=== PATIENT | female | born 1990 | race Caucasian/White ===

== ENCOUNTER 2021-12-09 06:25 | Inpatient (IN) | payer BC ==
[2021-12-09] MEDS: ELECTROLYTE-148 SOLN 1,000 ML IV SCH ×4 (08:15→18:14)
[2021-12-09 09:17] VITALS: BMI 36.0
[2021-12-09] MEDS ORDERED: OXYTOCIN 30 UNITS in 0.9% NS 30 UNIT/500 ML INFUS.BAG IVPB ONE (09:59)
[2021-12-09] MEDS: OXYTOCIN 30 UNITS in 0.9% NS 30 UNIT/500 ML INFUS.BAG IVPB SCH (10:05)
[2021-12-09 10:17] LABS: INR 0.93 (0.83-1.09); PROTHROMBIN TIME (PATIENT) 10.7 SEC (9.7-13.0)
[2021-12-09 10:19] LABS: ACTIVATED PTT 28.2 SECONDS (25.2-36.5)
[2021-12-09 10:24] LABS: BASO % 0.2 % (0-2.0); EOS % 0.3 % (0-4.5); HEMATOCRIT 40.6 % (32.4-45.2); LYMPH % 10.6 % (8-40); MCH 27.8 pg (25.7-33.7); MCHC 32.1 g/dl (32.0-36.0); MEAN CELL VOLUME 86.7 fl (80-96); MEAN PLT VOLUME 8.5 fl (7.5-11.1); MONO % 5.4 % (3.8-10.2); NEUT % 83.5 % (42.8-82.8); PLATELET COUNT 246 10^3/uL (134-434); RBC 4.68 M/mm3 (3.60-5.2); RDW 13.7 % (11.6-15.6); WHITE BLOOD COUNT 12.3 K/mm3 (4.0-10.0)
[2021-12-09 11:07] LABS: BLOOD UREA NITROGEN 8.7 mg/dL (7-18)
[2021-12-09 11:10] LABS: CREATININE 0.4 mg/dL (0.55-1.3)
[2021-12-09 12:15] LABS: HIV INTERPRETATION NEGATIVE (NEGATIVE)
[2021-12-09] MEDS ORDERED: FENTANYL/BUPIVACAINE/NS/PF - PCEA - 50 ML DISP.SYRIN EP ONE ×3 (12:37→21:08)
[2021-12-09] MEDS ORDERED: BUPIVACAINE HCL/PF 0.25% (2.5MG/ML) 10 ML VIAL ONE ×2 (12:44→21:21)
[2021-12-09] MEDS ORDERED: NALOXONE HCL 0.4 MG/ML VIAL IVPUSH PRN (13:29)
[2021-12-09] MEDS ORDERED: FENTANYL/BUPIVACAINE/NS/PF - PCEA - 50 ML DISP.SYRIN EP SCH (13:30)
[2021-12-09] MEDS: FENTANYL/BUPIVACAINE/NS/PF - PCEA - 50 ML DISP.SYRIN EP SCH (17:33)
[2021-12-10] MEDS ORDERED: FENTANYL/BUPIVACAINE/NS/PF - PCEA - 50 ML DISP.SYRIN EP ONE ×3 (00:43→06:57)
[2021-12-10] MEDS: FENTANYL/BUPIVACAINE/NS/PF - PCEA - 50 ML DISP.SYRIN EP SCH ×3 (00:45→07:00)
[2021-12-10] MEDS ORDERED: OXYTOCIN 20 UNITS in 0.9% NS 20 UNIT/1,000 ML INFUS.BAG IV ONE (04:16)
[2021-12-10] MEDS ORDERED: AMPICILLIN - 2 GM in SODIUM CHLORIDE 100 ML IVPB ONE (06:00)
[2021-12-10] MEDS ORDERED: AMPICILLIN SODIUM 2 GM VIAL ONE (06:07)
[2021-12-10] MEDS ORDERED: oxyCODONE HCL 5 MG TABLET PO PRN (09:40)
[2021-12-10] MEDS ORDERED: WITCH HAZEL 50% (TUCKS) 40 PAD/JAR PAD TP PRN (09:40)
[2021-12-10] MEDS ORDERED: BISACODYL 10 MG SUPP.RECT RC PRN (09:40)
[2021-12-10] MEDS ORDERED: METHYLERGONOVINE MALEATE 0.2 MG/1 ML AMP IM PRN (09:40)
[2021-12-10] MEDS ORDERED: BENZOCAINE 28 GM HEMORRHOIDAL OINTMENT TP PRN (09:40)
[2021-12-10] MEDS ORDERED: ACETAMINOPHEN 325 MG TABLET (FP) PO PRN (09:40)
[2021-12-10] MEDS ORDERED: BENZOCAINE 20% 57 GM BOTTLE TP PRN (09:40)
[2021-12-10] MEDS ORDERED: OXYTOCIN 20 UNITS in 0.9% NS 20 UNIT/1,000 ML INFUS.BAG IV SCH (09:45)
[2021-12-10] MEDS: IBUPROFEN 600 MG TABLET (FP) PO PRN ×2 (10:19→17:34)
[2021-12-10] MEDS ORDERED: IBUPROFEN 600 MG TABLET (FP) PO ONE (10:20)
[2021-12-10] MEDS: AMPICILLIN - 1 GM in SODIUM CHLORIDE 100 ML IVPB SCH (17:31)
[2021-12-11] MEDS: FENTANYL/BUPIVACAINE/NS/PF - PCEA - 50 ML DISP.SYRIN EP SCH (02:06)
[2021-12-11] MEDS: AMPICILLIN - 1 GM in SODIUM CHLORIDE 100 ML IVPB SCH (02:07)
[2021-12-11 08:16] LABS: BASO % 0.2 % (0-2.0); EOS % 0.5 % (0-4.5); HEMATOCRIT 31.4 % (32.4-45.2); HEMOGLOBIN 10.2 GM/dL (10.7-15.3); LYMPH % 7.2 % (8-40); MCH 28.2 pg (25.7-33.7); MCHC 32.6 g/dl (32.0-36.0); MEAN CELL VOLUME 86.6 fl (80-96); NEUT % 86.1 % (42.8-82.8); PLATELET COUNT 198 10^3/uL (134-434); RBC 3.62 M/mm3 (3.60-5.2); RDW 14.1 % (11.6-15.6)
[2021-12-11] MEDS: IBUPROFEN 600 MG TABLET (FP) PO PRN ×2 (14:13→22:08)
[2021-12-11] MEDS: OXYTOCIN 30 UNITS in 0.9% NS 30 UNIT/500 ML INFUS.BAG IVPB SCH (20:25)
[2021-12-11] MEDS: ELECTROLYTE-148 SOLN 1,000 ML IV SCH (20:25)
[2021-12-11] MEDS ORDERED: SENNOSIDES/DOCUSATE COMBO (SENNA PLUS) TABLET (UD) PO PRN (22:00)
[2021-12-11] MEDS: PHENYLEPHRINE HCL/COCOA BUTTER SUPPOSITORY RC SCH (22:11)
[2021-12-12 08:50] LABS: BASO % 0.5 % (0-2.0); EOS % 1.7 % (0-4.5); HEMATOCRIT 30.7 % (32.4-45.2); HEMOGLOBIN 9.8 GM/dL (10.7-15.3); LYMPH % 11.7 % (8-40); MCH 28.2 pg (25.7-33.7); MCHC 31.9 g/dl (32.0-36.0); MEAN CELL VOLUME 88.3 fl (80-96); MEAN PLT VOLUME 8.5 fl (7.5-11.1); NEUT % 81.1 % (42.8-82.8); PLATELET COUNT 227 10^3/uL (134-434); RBC 3.48 M/mm3 (3.60-5.2); RDW 13.8 % (11.6-15.6); WHITE BLOOD COUNT 13.4 K/mm3 (4.0-10.0)
[2021-12-12] MEDS: PHENYLEPHRINE HCL/COCOA BUTTER SUPPOSITORY RC SCH (09:52)
[2021-12-12] MEDS: IBUPROFEN 600 MG TABLET (FP) PO PRN (09:52)
[2021-12-12 10:08] VITALS: BP 115/75; PULSE 89; TEMP 98
== END 2021-12-12 18:40 | disposition home or self-care (01) | DRG 807 ==
LOC: JLDR 06:25 → J3W 12-10 12:10
PROVIDERS: ADMIT Obstetrics & Gynecology; ATTEND Specialist
PROC: 10E0XZZ Delivery of Products of Conception, External Approach (ICD-10-PCS; principal; 2021-12-10)
PROC: 0W8NXZZ Division of Female Perineum, External Approach (ICD-10-PCS; 2021-12-10)
DX: O80 Encounter for full-term uncomplicated delivery (principal); Z37.0 Single live birth; Z3A.39 39 weeks gestation of pregnancy
CPT/HCPCS: 36415; 59409; 80048; 85025; 85610; 85730; 86780; 86850; 86900; 86901; 87389; 88307-TC; C9803; U0003; U0005

== ENCOUNTER 2023-11-04 05:15 | Inpatient (IN) | payer BC ==
[2023-11-04] MEDS ORDERED: TERBUTALINE SULFATE 1 MG/1 ML VIAL SQ ONE (05:54)
[2023-11-04] MEDS: ELECTROLYTE-148 SOLN 500 ML IV ONE (06:00)
[2023-11-04] MEDS ORDERED: ELECTROLYTE-148 SOLN 1,000 ML IV SCH (06:00)
[2023-11-04] MEDS ORDERED: OXYTOCIN 20 UNITS in 0.9% NS 20 UNIT/1,000 ML INFUS.BAG IV ONE (06:03)
[2023-11-04] MEDS ORDERED: LIDOCAINE HCL 1% PRESERVATIVE FREE - 30ML VIAL ONE (06:03)
[2023-11-04 06:25] VITALS: BMI 36.5
[2023-11-04 06:44] LABS: BASO % 0.3 % (0-2.0); EOS % 0.6 % (0-4.5); HEMATOCRIT 40.5 % (32.4-45.2); HEMOGLOBIN 13.4 GM/dL (10.7-15.3); LYMPH % 14.7 % (8-40); MCH 28.5 pg (25.7-33.7); MEAN CELL VOLUME 86.3 fl (80-96); MEAN PLT VOLUME 8.7 fl (7.5-11.1); MONO % 8.7 % (3.8-10.2); NEUT % 75.7 % (42.8-82.8); PLATELET COUNT 205 10^3/uL (134-434); RBC 4.69 M/mm3 (3.60-5.2); RDW 13.4 % (11.6-15.6)
[2023-11-04] MEDS ORDERED: FENTANYL/BUPIVACAINE/NS/PF - PCEA - 50 ML DISP.SYRIN EP ONE (06:54)
[2023-11-04 06:55] LABS: INR 0.97 (0.83-1.09); PROTHROMBIN TIME (PATIENT) 11.3 SEC (9.7-13.0)
[2023-11-04] MEDS: TERBUTALINE SULFATE 1 MG/1 ML VIAL SQ ONE (06:56)
[2023-11-04 06:58] LABS: ACTIVATED PTT 27.9 SECONDS (25.2-36.5)
[2023-11-04] MEDS ORDERED: ONDANSETRON 4 MG/2 ML VIAL ONE (06:58)
[2023-11-04] MEDS ORDERED: DEXAMETHASONE SOD PHOSPHATE 4 MG/1 ML VIAL ONE (06:58)
[2023-11-04] MEDS ORDERED: ceFAZolin SODIUM 1 GM VIAL ONE (06:58)
[2023-11-04] MEDS ORDERED: LIDOCAINE HCL/PF 2% SDV 5ML VIAL ONE ×2 (06:58→07:55)
[2023-11-04] MEDS ORDERED: PHENYLEPHRINE HCL 10 MG/1 ML SINGLE DOSE VIAL ONE (06:58)
[2023-11-04] MEDS ORDERED: METOCLOPRAMIDE HCL INJECTION 10 MG/2 ML VIAL ONE (06:58)
[2023-11-04] MEDS ORDERED: EPINEPHrine/PF 1 MG/1 ML (1:1,000) AMPULE ONE ×2 (06:59→07:56)
[2023-11-04 07:02] LABS: POTASSIUM 3.7 mmol/L (3.5-5.1)
[2023-11-04 07:05] LABS: CALCIUM 9.2 mg/dL (8.5-10.1)
[2023-11-04 07:06] LABS: BLOOD UREA NITROGEN 9.1 mg/dL (7-18)
[2023-11-04] MEDS ORDERED: morphine SULFATE/PF 1 MG/2 ML (2cc Syringe - QUVA) ONE ×2 (07:07→07:20)
[2023-11-04 07:09] LABS: CREATININE 0.6 mg/dL (0.55-1.3)
[2023-11-04] MEDS ORDERED: FENTANYL CITRATE/PF 50 MCG/ML VIAL ONE ×2 (07:17→07:20)
[2023-11-04] MEDS ORDERED: KETOROLAC TROMETHAMINE 30 MG/1 ML VIAL ONE (07:19)
[2023-11-04] MEDS ORDERED: OXYTOCIN 10 UNITS/ML VIAL ONE ×2 (07:31→08:23)
[2023-11-04] MEDS ORDERED: NITROGLYCERIN 50 MG/10 ML VIAL IVPB ONE (07:40)
[2023-11-04] MEDS ORDERED: SODIUM CHLORIDE 0.9% P/F 10 ML VIAL IJ ONE (07:57)
[2023-11-04 08:44] LABS: CORD BASE EXCESS -5.1 mmol/L (0-2); CORD HCO3 23.3 mmHg (20-29); CORD PCO2 58.2 mmHg (30-78); CORD pH 7.221 (7.14-7.44)
[2023-11-04 08:48] LABS: CORD HCO3 21.4 mmHg (20-29); CORD pH 7.296 (7.14-7.44)
[2023-11-04] MEDS ORDERED: ONDANSETRON 4 MG/2 ML VIAL IVPUSH PRN (08:52)
[2023-11-04 09:00] LABS: CORD HCO3 17.2 mmHg (20-29)
[2023-11-04 09:03] LABS: CORD HCO3 17.1 mmHg (20-29); CORD PCO2 75.5 mmHg (30-78)
[2023-11-04 09:08] LABS: CORD pH 6.934 (7.14-7.44)
[2023-11-04 09:09] LABS: CORD pH 6.974 (7.14-7.44)
[2023-11-04] MEDS: morphine SULFATE/PF 1 MG/2 ML (2cc Syringe - QUVA) EP ONE (09:45)
[2023-11-04] MEDS ORDERED: WITCH HAZEL 50% (TUCKS) 40 PAD/JAR PAD TP PRN (15:02)
[2023-11-04] MEDS ORDERED: METHYLERGONOVINE MALEATE 0.2 MG/1 ML AMP IM PRN (15:02)
[2023-11-04] MEDS ORDERED: ACETAMINOPHEN 325 MG TABLET (FP) PO PRN (15:02)
[2023-11-04] MEDS: OXYTOCIN 20 UNITS in 0.9% NS 20 UNIT/1,000 ML INFUS.BAG IV SCH (15:15)
[2023-11-04] MEDS: ACETAMINOPHEN 1000 MG/100 ML BAG IVPB ONE (15:23)
[2023-11-04] MEDS: IBUPROFEN 800 MG/8 ML IJ IVPB PRN (18:17)
[2023-11-05] MEDS: SIMETHICONE 80 MG TAB.CHEW (FP) PO PRN (01:09)
[2023-11-05] MEDS ORDERED: oxyCODONE HCL 5 MG TABLET PO PRN ×2 (03:02)
[2023-11-05 08:10] LABS: BASO % 0.2 % (0-2.0); EOS % 0.9 % (0-4.5); HEMATOCRIT 27.5 % (32.4-45.2); HEMOGLOBIN 8.9 GM/dL (10.7-15.3); LYMPH % 10.8 % (8-40); MCH 28.2 pg (25.7-33.7); MCHC 32.4 g/dl (32.0-36.0); MEAN CELL VOLUME 87.1 fl (80-96); MEAN PLT VOLUME 8.3 fl (7.5-11.1); MONO % 5.5 % (3.8-10.2); NEUT % 82.6 % (42.8-82.8); PLATELET COUNT 196 10^3/uL (134-434); RBC 3.16 M/mm3 (3.60-5.2); RDW 13.7 % (11.6-15.6); WHITE BLOOD COUNT 13.8 K/mm3 (4.0-10.0)
[2023-11-05] MEDS: ENOXAPARIN NA (PORCINE) 40 MG/0.4 ML DISP.SYRIN SQ SCH (10:05)
[2023-11-05] MEDS: PRENATAL VITAMINS W/ FOLIC ACID TABLET (FP) PO SCH (10:06)
[2023-11-05] MEDS: IBUPROFEN 600 MG TABLET (FP) PO PRN (10:06)
[2023-11-05] MEDS: SENNOSIDES/DOCUSATE COMBO (SENNA PLUS) TABLET (UD) PO PRN (20:08)
[2023-11-07 09:54] LABS: BASO % 0.4 % (0-2.0); EOS % 2.6 % (0-4.5); HEMATOCRIT 28.1 % (32.4-45.2); HEMOGLOBIN 9.1 GM/dL (10.7-15.3); LYMPH % 14.3 % (8-40); MCH 27.9 pg (25.7-33.7); MCHC 32.5 g/dl (32.0-36.0); MEAN CELL VOLUME 85.8 fl (80-96); MEAN PLT VOLUME 7.6 fl (7.5-11.1); MONO % 4.8 % (3.8-10.2); NEUT % 77.9 % (42.8-82.8); PLATELET COUNT 289 10^3/uL (134-434); RBC 3.28 M/mm3 (3.60-5.2); RDW 14.1 % (11.6-15.6); WHITE BLOOD COUNT 10.8 K/mm3 (4.0-10.0)
[2023-11-07] MEDS: BISACODYL 10 MG SUPP.RECT RC PRN (15:10)
[2023-11-07 22:38] VITALS: PULSE 96
[2023-11-08 09:32] VITALS: BP 112/68; RESP 16; TEMP 98.3
== END 2023-11-08 14:10 | disposition home or self-care (01) | DRG 788 ==
LOC: JDEL 05:15 → JLDR 05:32 → J3W 10:55
PROVIDERS: ADMIT Obstetrics & Gynecology; ATTEND Obstetrics & Gynecology
PROC: 10D00Z1 Extraction of Products of Conception, Low, Open Approach (ICD-10-PCS; principal; 2023-11-04)
DX: O32.2XX0 Maternal care for transverse and oblique lie, not applicable or unspecified (principal); O30.043 Twin pregnancy, dichorionic/diamniotic, third trimester; Z3A.37 37 weeks gestation of pregnancy; Z37.2 Twins, both liveborn
CPT/HCPCS: 36415; 36600; 80048; 82803; 85025; 85610; 85730; 86780; 86850; 86900; 86901; 86922; 88307-TC; J0131